=== PATIENT | male | born 1975 | race Caucasian/White ===

== ENCOUNTER 2021-05-04 01:16 | Day surgery (SDC) | payer BC, SELFPAY ==
[2021-04-21 14:15] VITALS: BMI 26.6
[2021-05-04 09:18] VITALS: BP 138/82; PULSE 77; RESP 16; TEMP 36.3; O2SAT 100; BMI 26.1
[2021-05-04] MEDS: LACTATED RINGERS 1,000 ML 150 ML IV CONT (09:25)
--- NOTE | 2021-05-04 09:49 | P.PNAN_ITS ---
Anes - Initial Pre Proc Eval Procedure: Operation Date: 05/04/21 10:30 Proposed Procedures p Esophagogastroduodenoscopy & Colonoscopy - Home Reynolds MD Date/Time: 05/04/21 09:49 Surgeon: Home Reynolds MD Pre Op Diagnosis: anemia, family hx of colon ca, neoplasm screening Patient Data Age: 45 Gender: M Height: 1.75 m Weight: 80.3 kg Last Vital Signs Temp 97.3 F L 05/04/21 09:18 Pulse 77 05/04/21 09:18 Resp 16 05/04/21 09:18 BP 138/82 05/04/21 09:18 Pulse Ox 100 05/04/21 09:18 Allergies Allergy/AdvReac Type Severity Reaction Status Date / Time latex Allergy Mild Redness of Verified 05/04/21 09:15 Skin Home Medications Medication Instructions Recorded Confirmed Type aspirin 81 mg tablet,delayed 81 mg PO DAILY 12/27/19 04/21/21 History release atorvastatin 20 mg tablet 20 mg PO DAILY 12/27/19 04/21/21 History ibvrpnrm-kqfbakii-hvyhb acid 400 1 tablet PO DAILY 12/27/19 04/21/21 History mcg-vit K 20 mcg-lycop 300 mcg tablet ticagrelor 60 mg tablet 60 mg PO Q12H 12/27/19 04/21/21 History losartan 50 mg tablet 50 mg PO DAILY 03/09/21 04/21/21 History Patient hx anesthesia problems: none Family hx anesthesia problems: none Results Review: All pre-operative results and documents have been reviewed as part of the pre-operative evaluation. [facility] Past Medical History Medical History CAD (coronary artery disease) History of [place] (myocardial infarction) (~2017) Hypertension Surgical History Surgical History H/O cardiac catheterization (~2017) Family History Family History Mother Hypertension Hyperlipidemia Heart disease Father Carcinoma of colon Grandparent Hyperlipidemia Hypertension Heart disease Diabetes mellitus Social History Social History Smoking status: Never smoker Alcohol intake: current Drinks per week: 8 Alcohol use details: socially Substance use: never Substance use type: does not use Living arrangements: alone Spiritual care concerns: No Anes - Eval Final PreProcedure Day of Procedure 05/04/21 09:49 Patient weight: overweight Heart: regular rate and rhythm Lungs: clear to auscultation Airway: Mallampati scale class II Neurological: alert and oriented Last oral intake: >/= 8 hours ASA classification: III Emergent: no Anesthetic plan: proceed Anesthesia type and monitoring: general GIVS and standard monitoring Results Review: All pre-operative results and documents have been reviewed as part of the pre-operative evaluation. Informed Consent: The patient's anesthetic plan and its attendant risks and benefits were discussed with the patient/family/POA. Questions were solicited and answers provided to the satisfaction of the patient/family/POA.
--- NOTE | 2021-05-04 10:25 | PM.HPGS ---
History of Present Illness History of Present Illness Consent: Risks, benefits, and alternatives have been discussed and questions answered. Patient agrees to proceed with procedure. Chief complaint: anemia, family hx of colon ca, neoplasm screening Narrative: Albino Waldron is a 45 year old male with anemia but no overt gib, also father had colon cancer Review of Systems Constitutional: Constitutional: Denies headache(s) and Denies weakness Eyes: Eyes: Denies blurry vision ENT: Reports Normal hearing present, Denies headache(s) and Denies neck pain Cardiovascular: Cardiovascular: Denies chest pain and Denies dyspnea Respiratory: Respiratory: Denies dyspnea Gastrointestinal: Gastrointestinal: Reports no additional gastrointestinal complaints Genitourinary: Genitourinary: Denies dysuria Musculoskeletal: Musculoskeletal: Denies neck pain Integumentary/Breasts: Skin/Breast: Denies dry skin Neurologic: Reports Normal hearing present, Denies headache(s) and Denies weakness Psychiatric: Psychiatric: Denies anxiety Endocrine: Endocrine: Denies change in body appearance Hematologic/Lymphatic: Hematologic/Lymphatic: Denies easy bleeding Allergic/Immunologic: Allergic/Immunologic: Denies urticaria PMF Past Medical History Medical History (Updated 05/04/21 @ 10:33 by Home Reynolds MD) Anemia CAD (coronary artery disease) Family history of colon cancer in father History of [place] (myocardial infarction) (~2017) Hypertension Surgical History Surgical History H/O cardiac catheterization (~2017) Family History Family History Mother Hypertension Hyperlipidemia Heart disease Father Carcinoma of colon Grandparent Hyperlipidemia Hypertension Heart disease Diabetes mellitus Social History Social History Smoking status: Never smoker Alcohol intake: current Drinks per week: 8 Alcohol use details: socially Substance use: never Substance use type: does not use Living arrangements: alone Spiritual care concerns: No Meds Home Medications and Allergies Home Medications Medication Instructions Recorded Confirmed Type aspirin 81 mg tablet,delayed 81 mg PO DAILY 12/27/19 04/21/21 History release atorvastatin 20 mg tablet 20 mg PO DAILY 12/27/19 04/21/21 History noggcbto-vwdpwvak-potoh acid 400 1 tablet PO DAILY 12/27/19 04/21/21 History mcg-vit K 20 mcg-lycop 300 mcg tablet ticagrelor 60 mg tablet 60 mg PO Q12H 12/27/19 04/21/21 History losartan 50 mg tablet 50 mg PO DAILY 03/09/21 04/21/21 History Allergies Allergy/AdvReac Type Severity Reaction Status Date / Time latex Allergy Mild Redness of Verified 05/04/21 09:15 Skin Vital Signs Vital Signs - 24 hr 05/04/21 09:18 Temperature 97.3 F L Pulse Rate 77 Respiratory Rate 16 Blood Pressure 138/82 Pulse Oximetry 100 Exam Const: General: comfortable and no acute distress HENMT: General nose exam: Normal nares present Eyes: General: appearance normal, both eyes and all related structures Neck: Neck: no JVD Resp: Auscultation: clear to auscultation bilaterally Cardio: Rate: regular rate Rhythm: regular rhythm GI: Inspection: non-distended GI Palp: Yes Soft to palpation Skin: General skin exam: normal color Neuro: General: gait normal Speech: normal speech Extrem: General: normal to inspection Psych: Mental Status: mental status grossly normal Assessment and Plan Assessment and plan (1) Anemia: Code(s): D64.9 - Anemia, unspecified Status: Acute Assessment and Plan: scopes to assess if gi blood loss (2) Family history of colon cancer in father: Code(s): Z80.0 - Family history of malignant neoplasm of digestive organs Status: Acute Assessment and Pl
[2021-05-04 10:55] VITALS: BP 110/77; PULSE 73; RESP 20; O2SAT 97
[2021-05-04 11:05] VITALS: BP 118/82; PULSE 65; RESP 20; O2SAT 100
[2021-05-04 11:15] VITALS: BP 122/86; PULSE 70; RESP 19; O2SAT 100
== END 2021-05-04 11:20 | disposition home or self-care (01) ==
PROVIDERS: PCP Family Medicine; Visit Provider Internal Medicine Gastroenterology
PROC: 0DJ08ZZ Inspection of Upper Intestinal Tract, Via Natural or Artificial Opening Endoscopic (ICD-10-PCS; CPT 43235; principal; 2021-05-04 10:30)
DX: Z12.11 Encounter for screening for malignant neoplasm of colon (principal); D12.2 Benign neoplasm of ascending colon; K63.5 Polyp of colon; K64.8 Other hemorrhoids; Z80.0 Family history of malignant neoplasm of digestive organs; D50.9 Iron deficiency anemia, unspecified; K44.9 Diaphragmatic hernia without obstruction or gangrene; K29.50 Unspecified chronic gastritis without bleeding; I10 Essential (primary) hypertension; I25.10 Atherosclerotic heart disease of native coronary artery without angina pectoris; I25.2 Old myocardial infarction; Z79.82 Long term (current) use of aspirin
CPT/HCPCS: 45385; 43239; 88305; J2704; J7120

== ENCOUNTER 2024-06-18 01:20 | Day surgery (SDC) | payer BC, SELFPAY ==
[2024-05-29 14:08] VITALS: BMI 27.3
[2024-06-18 06:20] VITALS: BP 136/87; PULSE 81; RESP 20; TEMP 36.4; O2SAT 100
[2024-06-18] MEDS: LACTATED RINGERS 1,000 ML 150 ML IV CONT (06:31)
--- NOTE | 2024-06-18 07:27 | WPDANESEPPF ---
Anes - Initial Pre Proc Eval Procedure: Operation Date: 06/18/24 07:30 Proposed Procedures p Colonoscopy - Christiano Mckeon MD Date/Time: 06/18/24 07:27 Surgeon: Christiano Mckeon MD Pre Op Diagnosis: Personal History colon polyps, Family HX malignant Patient Data Age: 48 Gender: M Height: 1.78 m Weight: 88.3 kg Last Vital Signs Temp 97.5 F L 06/18/24 06:20 Pulse 81 06/18/24 06:20 Resp 20 06/18/24 06:20 BP 136/87 06/18/24 06:20 Pulse Ox 100 06/18/24 06:20 O2 Del Method Room Air 06/18/24 06:20 Allergies Allergy/AdvReac Type Severity Reaction Status Date / Time latex Allergy Mild Redness of Verified 06/18/24 06:17 Skin Home Medications Medication Instructions Recorded Confirmed Type aspirin 81 mg tablet,delayed 81 mg PO DAILY 12/27/19 06/18/24 History release (Adult Aspirin Regimen) atorvastatin 20 mg tablet 20 mg PO DAILY 12/27/19 06/18/24 History losartan 50 mg tablet 50 mg PO DAILY 03/09/21 06/18/24 History omeprazole 20 mg capsule,delayed 20 mg PO DAILY 3 months #90 caps 06/11/24 06/18/24 Rx release Patient hx anesthesia problems: none Family hx anesthesia problems: none Results Review: All pre-operative results and documents have been reviewed as part of the pre-operative evaluation. [facility] Past Medical History Medical History Anemia CAD (coronary artery disease) Family history of colon cancer in father History of [place] (myocardial infarction) (~2017) Hyperlipidemia Hypertension Surgical History Surgical History H/O cardiac catheterization (~2017) Family History Family History Mother Hypertension Hyperlipidemia Heart disease Father Carcinoma of colon Grandparent Hyperlipidemia Hypertension Heart disease Diabetes mellitus Social History Social History Smoking status: Never smoker Second hand tobacco smoke exposure: No Alcohol intake: current Drinks per week: 18 Alcohol use details: socially Substance use: never Substance use type: does not use Lack of Transportation: No Lack of Food: Never True Current Housing: I Have Housing Concerned About Future Housing: No Difficulty Paying Gas/Electric Bills: No Difficulty Paying for Meds: No Currently Unemployed: No Education: Associate Degree Difficulty w/ Childcare or Family Care: No Living arrangements: alone Occupation/Education: occupation Gender identity (if verbalized by the patient): Male Spiritual care concerns: No Anes - Eval Final PreProcedure Day of Procedure 06/18/24 07:27 Patient weight: normal Heart: regular rate and rhythm Lungs: clear to auscultation Airway: Mallampati scale class II Neurological: alert and oriented Last oral intake: >/= 8 hours ASA classification: III Emergent: no Anesthetic plan: proceed Anesthesia type and monitoring: general GIVS and standard monitoring Results Review: All pre-operative results and documents have been reviewed as part of the pre-operative evaluation. Informed Consent: The patient's anesthetic plan and its attendant risks and benefits were discussed with the patient/family/POA. Questions were solicited and answers provided to the satisfaction of the patient/family/POA.
--- NOTE | 2024-06-18 07:36 | PM.IMHP ---
H&P: HPI History of Present Illness Date/Time: 06/18/24 07:36 Chief Complaint: Family history of colorectal cancer. Narrative: This patient has family history of colorectal cancer. His father had colorectal cancer at age 58. The patient had a colonoscopy 5 years ago and had some polyps. Review of Systems Review of Systems: All systems reviewed & are unremarkable except as noted in HPI and below PMFSH Past Medical History Medical History Anemia CAD (coronary artery disease) Family history of colon cancer in father History of [place] (myocardial infarction) (~2017) Hyperlipidemia Hypertension Surgical History Surgical History H/O cardiac catheterization (~2017) Family History Family History Mother Hypertension Hyperlipidemia Heart disease Father Carcinoma of colon Grandparent Hyperlipidemia Hypertension Heart disease Diabetes mellitus Social History Social History Smoking status: Never smoker Second hand tobacco smoke exposure: No Alcohol intake: current Drinks per week: 18 Alcohol use details: socially Substance use: never Substance use type: does not use Lack of Transportation: No Lack of Food: Never True Current Housing: I Have Housing Concerned About Future Housing: No Difficulty Paying Gas/Electric Bills: No Difficulty Paying for Meds: No Currently Unemployed: No Education: Associate Degree Difficulty w/ Childcare or Family Care: No Living arrangements: alone Occupation/Education: occupation Gender identity (if verbalized by the patient): Male Spiritual care concerns: No Meds Home Medications and Allergies Home Medications Medication Instructions Recorded Confirmed Type aspirin 81 mg tablet,delayed 81 mg PO DAILY 12/27/19 06/18/24 History release (Adult Aspirin Regimen) atorvastatin 20 mg tablet 20 mg PO DAILY 12/27/19 06/18/24 History losartan 50 mg tablet 50 mg PO DAILY 03/09/21 06/18/24 History omeprazole 20 mg capsule,delayed 20 mg PO DAILY 3 months #90 caps 06/11/24 06/18/24 Rx release Allergies Allergy/AdvReac Type Severity Reaction Status Date / Time latex Allergy Mild Redness of Verified 06/18/24 06:17 Skin Vital Signs Vital Signs - 24 hr 06/18/24 06:20 Temperature 97.5 F L Pulse Rate 81 Respiratory Rate 20 Blood Pressure 136/87 Pulse Oximetry 100 Oxygen Delivery Room Air Exam Const: General: cooperative and healthy appearing Resp: Effort & Inspection: normal respiratory effort and able to speak in complete sentences Auscultation: clear to auscultation bilaterally Cardio: Rate: regular rate Rhythm: regular rhythm GI: Inspection: normal to inspection GI Palp: No No hepatosplenomegaly present Auscultation: normal bowel sounds Rectal Exam: deferred Skin: General skin exam: normal color Psych: Appearance: grossly normal Mental Status: mental status grossly normal Assessment and Plan Assessment and plan (1) Family history of colon cancer in father: Code(s): Z80.0 - Family history of malignant neoplasm of digestive organs Status: Acute Assessment and Plan: The patient is deemed a good candidate for the procedure. Consent signed. Will proceed.
[2024-06-18 07:56] VITALS: BP 95/62; PULSE 89; RESP 23; O2SAT 95
[2024-06-18 08:06] VITALS: BP 112/76; PULSE 85; RESP 26; O2SAT 96
[2024-06-18 08:16] VITALS: BP 113/80; PULSE 76; RESP 26; O2SAT 98
== END 2024-06-18 08:24 | disposition home or self-care (01) ==
PROVIDERS: PCP Family Medicine; Referring Provider Internal Medicine Gastroenterology; Visit Provider Internal Medicine Gastroenterology
PROC: 0DJD8ZZ Inspection of Lower Intestinal Tract, Via Natural or Artificial Opening Endoscopic (ICD-10-PCS; CPT 45378; principal; 2024-06-18 07:30)
DX: Z12.11 Encounter for screening for malignant neoplasm of colon (principal); E78.5 Hyperlipidemia, unspecified; I10 Essential (primary) hypertension; D64.9 Anemia, unspecified; I25.10 Atherosclerotic heart disease of native coronary artery without angina pectoris; I25.2 Old myocardial infarction; Z79.82 Long term (current) use of aspirin; Z98.890 Other specified postprocedural states; Z98.61 Coronary angioplasty status; Z86.0100 Personal history of colon polyps, unspecified; Z80.0 Family history of malignant neoplasm of digestive organs; Z82.49 Family history of ischemic heart disease and other diseases of the circulatory system
CPT/HCPCS: 45378; J2003; J2704; J7120

== ENCOUNTER 2024-10-12 09:30 | Emergency (ER) | payer BC, SELFPAY ==
--- NOTE | ~2024-10-12 | XR_ITS ---
Clinical Indication: Chest pain PA and lateral views of the chest: Comparison: 06/02/2018 Findings: The lungs are clear, without evidence of focal consolidation or pleural effusion. Cardiome diastinal silhouette is within normal limits. Bones and soft tissues are unremarkable. Impression: Normal chest. Reviewed, dictated and finalized at location . Impression: Normal chest.
--- NOTE | 2024-10-12 09:30 | ECG_ITS ---
Test Date: 2024-10-12 09:41:01 Measurements Intervals [place] Rate: 75 P: 63 AL: 148 QRS: 44 QRSD: 95 T: 39 QT: 366 QTc: 411 Interpretive Statements SINUS RHYTHM BASELINE ARTIFACT- I, II, III, AVR, AVL, AVF, V1-V3 NORMAL ECG No previous ECG available for comparison Electronically Signed On 10-12-2024 09:45:39 CDT by Willie Henley D.O.
[2024-10-12 09:34] VITALS: BP 159/95; PULSE 78; RESP 21; TEMP 36.5; O2SAT 100
[2024-10-12 09:49] LABS: Basophils Absolute Auto 0.1 K/mm3 (0.0-0.1); Basophils Percent Auto 0.6 % (0.2-1.2); Eosinophils Absolute Auto 0.2 K/mm3 (0-0.3); Eosinophils Percent Auto 1.7 % (0-4.4); Hematocrit 43.5 % (42.0-52.0); Hemoglobin 13.9 g/dL (14.0-18.0); Immature Granulocyte Absolute 0.03 K/mm3 (0.00-0.031); Immature Granulocyte Percent A 0.3 % (0-0.5); Lymphocytes Absolute Auto 2.25 K/mm3 (0.9-3.2); Lymphocytes Percent Auto 26.2 % (18.3-44.2); Mean Corpuscular Hemoglobin 31.2 pg (26-34); Mean Corpuscular Volume 97.8 fl (80-100); Mean Platelet Volume 8.7 fl (7.4-10.4); Monocytes Absolute Auto 0.5 K/mm3 (0.1-0.6); Monocytes Percent Auto 6.1 % (2.6-8.5); Neutrophils Absolute Auto 5.6 K/mm3 (1.3-6.7); Neutrophils Percent Auto 65.1 % (45.5-73.1); Platelet Count Result 308 k/mm3 (150-375); Red Blood Count 4.45 M/mm3 (4.6-6.20); Red Cell Distribution Width 13.2 % (11.5-14.5); White Blood Count 8.6 K/mm3 (4.5-10.0)
[2024-10-12 10:00] LABS: Alanine Aminotransferase 27 U/L (6-50); Albumin Level 4.9 g/dL (3.5-5.1); Alkaline Phosphatase 41 U/L (38-126); Anion Gap 9 mmol/L (4-12); Aspartate Amino Transferase 24 U/L (17-59); Bilirubin,Total 0.8 mg/dL (0.2-1.3); Blood Urea Nitrogen 20 mg/dL (9-20); Calcium 9.3 mg/dL (8.4-10.2); Carbon Dioxide 27 mmol/L (22-30); Chloride 103 mmol/L (98-107); Estimated CRCL calculation 105 ml/min; Estimated Glomerular Filt Rate > 60; Glucose 100 mg/dL (65-110); Lipase 112 U/L (23-300); Potassium 4.2 mmol/L (3.4-5.0); Sodium 139 mmol/L (137-145)
[2024-10-12 10:01] LABS: INR 0.9; Prothrombin Time 12.7 Seconds (11.1-14.7)
[2024-10-12 10:02] LABS: Partial Thromboplastin Time 29.2 Seconds (22.3-36.8)
[2024-10-12] MEDS: ASPIRIN 81 MG CHEWABLE TABLET 324 MG PO (10:08)
[2024-10-12 10:12] LABS: Troponin I < 0.012 ng/mL (0.000-0.034)
--- NOTE | 2024-10-12 10:18 | ED_ITS ---
HPI - General Adult General Chief complaint: Chest Pain Stated complaint: chest pain Time Seen by Provider: 10/12/24 09:36 History of Present Illness HPI narrative: 49-year-old male present to the emergency department for evaluation for intermittent dizziness, chest pressure and lower extremity weakness. Patient states symptoms started Tuesday after mowing his grass. Patient denies any exertional chest pain or shortness of breath while mowing the grass. Patient states symptoms are intermittent. Patient states the dizziness is worsened when he is up and moving. Patient does have a history of 4 stents but denies any history of coronary disease. Patient was having chest pain and had an Angiocath that injury and his coronary artery and patient had 4 stents placed for that. Does have history of hypertension, high cholesterol but does take medications for this. Patient follows up with cardiology at [facility]. Related Data Home Medications ?Medication ?Instructions ?Recorded ?Confirmed ?Last Taken ?Type aspirin 81 mg tablet,delayed 81 mg PO DAILY 12/27/19 09/06/24 06/18/24 04:00 History release (Adult Aspirin Regimen) atorvastatin 20 mg tablet 20 mg PO DAILY 12/27/19 09/06/24 06/17/24 19:30 History losartan 50 mg tablet 50 mg PO DAILY 03/09/21 09/06/24 06/18/24 04:00 History Allergies Allergy/AdvReac Type Severity Reaction Status Date / Time latex Allergy Mild Redness of Verified 09/06/24 09:22 Skin Review of Systems 2 Review of Systems: All systems reviewed & are unremarkable except as noted in HPI and below PMFSH Past Medical History Medical History Hyperlipidemia Family history of colon cancer in father Anemia History of [place] (myocardial infarction) (~2017) CAD (coronary artery disease) Hypertension Surgical History Surgical History H/O cardiac catheterization (~2018) Family History Family History Mother Hypertension Hyperlipidemia Heart disease Father Carcinoma of colon Grandparent Hyperlipidemia Hypertension Heart disease Diabetes mellitus Social History Social History Smoking status: Never smoker Second hand tobacco smoke exposure: No Alcohol intake: current Drinks per week: 18 Alcohol use details: socially Substance use: never Substance use type: does not use Lack of Transportation: No Lack of Food: Never True Current Housing: I Have Housing Concerned About Future Housing: No Difficulty Paying Gas/Electric Bills: No Difficulty Paying for Meds: No Currently Unemployed: No Education: Associate Degree Difficulty w/ Childcare or Family Care: No Living arrangements: alone Occupation/Education: occupation Gender identity (if verbalized by the patient): Male Spiritual care concerns: No Exam 2 Narrative: APPEARANCE: Well appearing, no pain, no distress, well-nourished. HEAD: normocephalic, atraumatic. EYES: PERRLA/EOMI, conjunctivae clear. NOSE: Normal no drainage EARS:TMS clear with good light reflex. THROAT: Pharynx clear, no exudate. NECK: Supple. No adenopathy, no masses. RESPIRATORY: Airway patent, respirations nonlabored. Clear to auscultation bilaterally, no rales, rhonchi, wheezing. CARDIOVASCULAR: Regular rate and rhythm without murmurs rubs or gallops. ABDOMINAL: Soft, nontender, nondistended, normal bowel sounds MUSCULOSKELETAL: Moves all extremities. Strength/ROM intact, No edema, No calf tenderness. NEURO: Alert. Cranial nerves II through XII intact. Good gait. Good coordination SKIN: Warm, dry. Normal Color Course Vital Signs Vital signs: Vital Signs Temperature 97.7 F 10/12/24 09:34 Pulse Rate 78 10/12/24 09:34 Respiratory Rate 21 H 10/12/24 09:34 Blood Pressure 159/95 H 10/12/24 09:34 Pulse Oximetry 100 10/12/24 09:34 Oxygen Delivery Room Air 10/12/24 09:34 Temperature 97.7 F 10/12/24 09:34 Pulse Rate 68 10/12/24 13:36 Respiratory Rate 14 10/12/24 13:36 Blood Pressure 146/95 H 10/12/24 13:36 Pulse Oximetry 100 10/12/24 13:36 Oxygen Delivery Room Air 10/12/24 09:34 Medical Decision Making [facility] Narrative Medical decision making narrative: 49-year-old male presents emergency department for evaluation for intermittent dizziness that sounds consistent with vertigo. Patient is currently afebrile with no leukocytosis and hemoglobin of 13.9. Patient's INR 0.9. Patient has a negative initial troponin and no acute abnormalities on his CMP. Patient's chest x-ray no acute cardiopulmonary abnormality. Patient was treated with p.o. meclizine for vertigo symptoms. After meclizine the patient states he does feel improved. Patient was able to ambulate without issue. Differential Diagnosis Differential Diagnosis: COVID, RSV, influenza, ACS, vertigo Vital Signs Vital Signs: Vital Signs Temperature 97.7 F 10/12/24 09:34 Pulse Rate 78 10/12/24 09:34 Respiratory Rate 21 H 10/12/24 09:34 Blood Pressure 159/95 H 10/12/24 09:34 Pulse Oximetry 100 10/12/24 09:34 Oxygen Delivery Room Air 10/12/24 09:34 Temperature 97.7 F 10/12/24 09:34 Pulse Rate 68 10/12/24 13:36 Respiratory Rate 14 10/12/24 13:36 Blood Pressure 146/95 H 10/12/24 13:36 Pulse Oximetry 100 10/12/24 13:36 Oxygen Delivery Room Air 10/12/24 09:34 Lab Data 10/12/24 09:42 10/12/24 09:42 Labs: Lab Results 10/12/24 10/12/24 Range/Units 09:42 12:44 WBC 8.6 (4.5-10.0) K/mm3 RBC 4.45 L (4.6-6.20) M/mm3 Hgb 13.9 L (14.0-18.0) g/dL Hct 43.5 (42.0-52.0) % MCV 97.8 (80-100) fl MCH 31.2 (26-34) pg MCHC 32.0 (32-36) g/dl RDW 13.2 (11.5-14.5) % Plt Count 308 (150-375) k/mm3 MPV 8.7 (7.4-10.4) fl Immature Gran % (Auto) 0.3 (0-0.5) % Neut % (Auto) 65.1 (45.5-73.1) % Lymph % (Auto) 26.2 (18.3-44.2) % [place] % (Auto) 6.1 (2.6-8.5) % Eos % (Auto) 1.7 (0-4.4) % Baso % (Auto) 0.6 (0.2-1.2) % Lymph # (Auto) 2.25 (0.9-3.2) K/mm3 [place] # (Auto) 0.5 (0.1-0.6) K/mm3 Eos # (Auto) 0.2 (0-0.3) K/mm3 Baso # (Auto) 0.1 (0.0-0.1) K/mm3 Abs Immat Gran (auto) 0.03 (0.00-0.031) K/mm3 Absolute Neuts (auto) 5.6 (1.3-6.7) K/mm3 Absolute Nucleated RBC 0.000 (0.0-0.012) K/mm3 Nucleated RBC % 0.0 (0.0-0.2) % PT 12.7 (11.1-14.7) Seconds INR 0.9 APTT 29.2 (22.3-36.8) Seconds Sodium 139 (137-145) mmol/L Potassium 4.2 (3.4-5.0) mmol/L Chloride 103 (98-107) mmol/L Carbon Dioxide 27 (22-30) mmol/L Anion Gap 9 (4-12) mmol/L BUN 20 (9-20) mg/dL Creatinine 0.87 (0.7-1.3) mg/dL Estim Creat Clear Calc 105 ml/min Estimated GFR > 60 (59 - ) Glucose 100 (65-110) mg/dL Calcium 9.3 (8.4-10.2) mg/dL Total Bilirubin 0.8 (0.2-1.3) mg/dL AST 24 (17-59) U/L ALT 27 (6-50) U/L Alkaline Phosphatase 41 (38-126) U/L Troponin I < 0.012 < 0.012 (0.000-0.034) ng/mL Total Protein 8.0 (6.3-8.2) g/dL Albumin 4.9 (3.5-5.1) g/dL Lipase 112 (23-300) U/L Discharge Plan Discharge Clinical Impression: Vertigo Patient Disposition: Home, Self-Care Condition: Stable Instructions: Antibiotic Form, Chest Pain (ED), Vertigo (DC) Additional Instructions: Meclizine as needed for vertigo control. Have close follow-up with your primary care physician and lug loader for additional outpatient cardiac testing. If you have any worsening symptoms then please call or return to the emergency department. Patient Language: Welsh Prescriptions: New meclizine 25 mg tablet 25 mg PO BID PRN (Reason: dizziness) 7 Days Qty: 14 0RF No Action atorvastatin 20 mg tablet 20 mg PO DAILY aspirin [Adult Aspirin Regimen] 81 mg tablet,delayed release (DR/EC) 81 mg PO DAILY losartan 50 mg tablet 50 mg PO DAILY omeprazole 20 mg capsule,delayed release(DR/EC) 20 mg PO DAILY 90 Days Qty: 90 0RF Follow-up/Referrals: Aliza Mcallister MD [Primary Care Provider] - Quality HEART score for chest pain patients History: slightly suspicious ECG: normal Age: > or = to 65 years Risk factors: 1 or 2 risk factors Troponin: < or = to 1x normal limit Heart score: 3
[2024-10-12] MEDS: MECLIZINE HCL 25 MG TABLET PO (10:36)
[2024-10-12 10:37] VITALS: BP 133/84; PULSE 93; RESP 16; O2SAT 98
--- NOTE | 2024-10-12 12:40 | ECG_ITS ---
Test Date: 2024-10-12 12:45:35 Measurements Intervals [place] Rate: 58 P: 63 [place]: 185 QRS: 29 QRSD: 85 T: 27 QT: 386 QTc: 382 Interpretive Statements SINUS BRADYCARDIA BORDERLINE ECG Compared to ECG 10/12/2024 09:41:01 HEART RATE HAS DECREASED Electronically Signed On 10-12-2024 13:54:45 CDT by Willie Henley D.O.
[2024-10-12 13:12] LABS: Troponin I < 0.012 ng/mL (0.000-0.034)
[2024-10-12 13:36] VITALS: BP 146/95; PULSE 68; RESP 14; O2SAT 100
== END 2024-10-12 13:53 | disposition home or self-care (01) ==
PROVIDERS: Emergency Provider Emergency Medicine; PCP Family Medicine
DX: R42 Dizziness and giddiness (principal); I10 Essential (primary) hypertension; I25.2 Old myocardial infarction; E78.00 Pure hypercholesterolemia, unspecified; Z95.5 Presence of coronary angioplasty implant and graft; Z86.2 Personal history of diseases of the blood and blood-forming organs and certain disorders involving the immune mechanism; Z79.82 Long term (current) use of aspirin; Z79.899 Other long term (current) drug therapy; R00.1 Bradycardia, unspecified
CPT/HCPCS: 36415; 71046; 80053; 83690; 84484; 85025; 85610; 85730; 93005; 99284; A9270